=== PATIENT | female | born 1965 | race Caucasian/White ===

== ENCOUNTER 2016-03-19 13:54 | Emergency (ER) | payer OTHER ==
[~2016-03-19] VITALS: Ht 162.6 cm; Wt 95.5 kg
[2016-03-19 14:01] VITALS: Ht 162.6 cm; Wt 95.5 kg
[2016-03-19] MEDS ORDERED: DICLOFENAC SODIUM 37.5 MG/ML VIAL IV STA (15:01)
[2016-03-19 16:32] LABS: ADD UMIC YES; URINE BILIRUBIN (Dip) NEGATIVE (NEGATIVE); URINE BLOOD (Dip) 3+ (NEGATIVE); URINE COLOR DK. RED (YELLOW); URINE GLUCOSE (Dip) NEGATIVE (NEGATIVE); URINE KETONES (Dip) TRACE (NEGATIVE); URINE LEUKOCYTE ESTERASE (Dip) NEGATIVE (NEGATIVE); URINE NITRITE (Dip) NEGATIVE (NEGATIVE); URINE TOTAL PROTEIN (Dip) 2+ (NEGATIVE); URINE UROBILINOGEN (Dip) 1.0 E.U./dL (0.1-1.0)
[2016-03-19 16:35] LABS: BASOPHILS % 0.4 % (0.0-2.0); EOSINOPHILS # 0.2 10^3/ul (0.0-0.5); EOSINOPHILS % 1.5 % (0.0-7.0); HEMATOCRIT 25.2 % (37.0-47.0); HEMOGLOBIN 8.1 g/dl (12.0-16.0); LYMPHOCYTES # 2.3 10^3/ul (0.8-2.9); LYMPHOCYTES % 23.9 % (15.0-51.0); MEAN CORPUSCULAR HEMOGLOBIN 22.9 pg (29.0-33.0); MEAN CORPUSCULAR VOLUME 71.5 fl (82.0-101.0); MONOCYTE # 0.4 10^3/ul (0.3-0.9); MONOCYTES % 4.4 % (0.0-11.0); NEUTROPHIL # 6.8 10^3/ul (1.6-7.5); NEUTROPHILS % 69.8 % (39.0-77.0); PLATELET COUNT 292 10^3/UL (140-440); RED BLOOD COUNT 3.52 10^6/ul (4.20-5.40); RED CELL DISTRIBUTION WIDTH 21.4 % (11.5-14.5); UNCORRECTED WBC 9.8 10^3/ul (4.8-10.8); WHITE BLOOD COUNT 9.8 10^3/ul (4.8-10.8)
[2016-03-19 16:38] LABS: CONDITION 1; INR 1.05; LH ANALYZER COMMENTS 1; PARTIAL THROMBOPLASTIN TIME 25.9 Sec (25.0-35.0); PROTIME 13.7 Sec (12.2-14.2); PT RATIO 1.1
[2016-03-19 16:40] LABS: ALBUMIN 4.4 g/dl (3.3-4.9); POTASSIUM 3.7 mmol/L (3.5-5.1)
[2016-03-19 16:42] LABS: CREATININE 0.9 mg/dl (0.44-1.00)
[2016-03-19 16:43] LABS: ALBUMIN/GLOBULIN RATIO 1.18; BILIRUBIN,INDIRECT 0.3 mg/dl (0-1.1); BILIRUBIN,TOTAL 0.3 mg/dl (0.2-1.3); TOTAL PROTEIN 8.1 g/dl (6.1-8.1)
[2016-03-19 16:44] LABS: CALCIUM 8.9 mg/dl (8.4-10.2)
--- NOTE | 2016-03-19 17:16 | RADRPT ---
PROCEDURE: US Pelvis CLINICAL INDICATION: Vaginal bleeding TECHNIQUE: Sonographic evaluation of the pelvis was performed utilizing both transabdominal and tr ansvaginal technique. Curved array transabdominal transducer technique as well as a high frequency endovaginal probe was utilized. Images were reviewed on the high-resolution PACS workstation. COMPARISON: None available FINDINGS: The uterus is mildly enlarged and heterogeneous, measuring 10.6 x 7.4 x 7.4 cm in dimension. The ut erus is anteverted in normal position. Anterior fundal submucosal fibroid is identified measuring 4.0 cm. The endometrium measures 10.8 mm in diameter. The normal trilaminar stripe of the endometr ium is preserved. Cervical Nabothian cysts are incidentally noted. The right ovary is not visualized. The left ovary measures 4.5 x 2.8 x 3.9 cm in dimension, and dem onstrate simple cysts measuring up to 2.6 cm. No left ovarian torsion or solid adnexal mass is seen . Trace amount of pelvic free fluid is present. IMPRESSION: 1. Uterus demonstrates a 4.0 cm anterior fundal submucosal fibroid. 2. Left ovary demonstrate simple cysts measuring up to 2.6 cm. 3. Right ovary is not visualized. No right adnexal mass is seen. 4. Nonspecific trace amount of pelvic free fluid is present. RPTAT: PP .Yaay Stokes MD, MD Date Time Electronically viewed and signed by .Yaya Stokes MD, MD on 03/19/2016 17:15 .R/
[2016-03-19 17:20] LABS: URINE RBCS >50 /HPF (0)
[2016-03-19 17:21] LABS: BACTERIA,URINE FEW; SQUAMOUS EPITHELIAL CELL,UR FEW
[2016-03-19] MEDS ORDERED: MEDR10TA2 PO (17:49)
[2016-03-19] MEDS ORDERED: FER325 PO (17:49)
[2016-03-19] MEDS ORDERED: ACET500C5 PO (17:50)
--- NOTE | 2016-03-19 17:53 | ERD ---
ER Documentation Chief Complaint Date/Time DATE: 03/19/16 TIME: 17:51 Chief Complaint vaginal bledding x 2 months, pelvic pain since yesterday HPI This 42-year-old female presents with vaginal bleeding intermittently for last 2 months. She started having more pelvic pain over the last 2 days. She has a fevers, vomiting, shortness breath or chest pain. She denies any dysuria or flank pain. The pain is primarily in the suprapubic area and is crampy. ROS All systems reviewed and are negative except as per history of present illness. Medications Home Meds Active Scripts Acetaminophen* (Tylophen*) 500 Mg Capsule, 1 CAP PO Q6H Y for PAIN AND OR ELEVATED TEMP, #20 CAP Prov:GUNNER KELLEY MD 03/19/16 Medroxyprogesterone Acetate* (Provera*) 10 Mg Tablet, 10 MG PO DAILY for 7 Days , #7 TAB Prov:GUNNER KELLEY MD 03/19/16 Ferrous Sulfate* (Ferrous Sulfate*) 325 Mg Tabec, 325 MG PO TID, #100 TAB Prov:GUNNER KELLEY MD 03/19/16 Allergies Allergies: Coded Allergies: No Known Allergy (Unverified , 03/19/16) PMhx/Soc Medical and Surgical Hx: pt denies Medical Hx, pt denies Surgical Hx Physical Exam Vitals Vital Signs Date Time Temp Pulse Resp B/P Pulse Ox O2 Delivery O2 Flow Rate FiO2 03/19/16 14:01 97.3 77 20 117/55 100 Physical Exam Const: [] Head: Atraumatic Eyes: Normal Conjunctiva ENT: Normal External Ears, Nose and Mouth. Neck: Full range of motion..~ No meningismus. Resp: Clear to auscultation bilaterally Cardio: Regular rate and rhythm, no murmurs Abd: Soft, non tender, non distended. Normal bowel sounds Skin: No petechiae or rashes Back: No midline or flank tenderness Ext: No cyanosis, or edema Neur: Awake and alert Psych: Normal Mood and Affect Result Diagram: 03/19/16 1605 03/19/16 1605 Results 24 hrs Laboratory Tests Test 03/19/16 16:05 Activated Partial Thromboplast Time 25.9Sec Alanine Aminotransferase (ALT/SGPT) 18IU/L Albumin 4.4g/dl Albumin/Globulin Ratio 1.18 Alkaline Phosphatase 55IU/L Anion Gap 18 Aspartate Amino Transf (AST/SGOT) 18IU/L Basophils # 0.010^3/ul Basophils % 0.4% Blood Morphology Comment Blood Urea Nitrogen 18mg/dl Calcium Level 8.9mg/dl Carbon Dioxide Level 25mmol/L Chloride Level 105mmol/L Creatinine 0.90mg/dl Direct Bilirubin 0.00mg/dl Eosinophils # 0.210^3/ul Eosinophils % 1.5% Globulin 3.70g/dl Glucose Level 101mg/dl Hematocrit 25.2% Hemoglobin 8.1g/dl INR International Normalized Ratio 1.05 Indirect Bilirubin 0.3mg/dl Lipase 74U/L Lymphocytes # 2.310^3/ul Lymphocytes % 23.9% Mean Corpuscular Hemoglobin 22.9pg Mean Corpuscular Hemoglobin Concent 32.0g/dl Mean Corpuscular Volume 71.5fl Mean Platelet Volume 8.0fl Monocytes # 0.410^3/ul Monocytes % 4.4% Neutrophils # 6.810^3/ul Neutrophils % 69.8% Nucleated Red Blood Cells # 0.010^3/ul Nucleated Red Blood Cells % 0.0/100WBC Platelet Count 21764^3/UL Potassium Level 3.7mmol/L Prothrombin Time 13.7Sec Prothrombin Time Ratio 1.1 Red Blood Count 3.5210^6/ul Red Cell Distribution Width 21.4% Sodium Level 144mmol/L Total Bilirubin 0.3mg/dl Total Protein 8.1g/dl Urine Bacteria FEW Urine Bilirubin NEGATIVE Urine Clarity CLEAR Urine Color DK. RED Urine Glucose NEGATIVE% Urine Hemoglobin 3+ Urine Ketones TRACE Urine Leukocyte Esterase NEGATIVE Urine Microscopic RBC >50/HPF Urine Microscopic WBC 0-2/HPF Urine Nitrite NEGATIVE Urine Specific [place] 1.025 Urine Squamous Epithelial Cells FEW Urine Total Protein 2+ Urine Urobilinogen 1.0 E.U./dL Urine pH 6.0 White Blood Count 9.810^3/ul Current Medications Medications (Trade) Dose Ordered Sig/Dereje Route PRN Reason Start Time Stop Time Status Last Admin Dose Admin Diclofenac Sodium (Dyloject) 37.5 mg ONCE STAT IV 03/19/16 15:01 03/19/16 15:04 DC 03/19/16 16:15 Medroxyprogesterone Acetate (Provera) 10 mg ONCE ONCE PO 03/19/16 18:00 03/19/16 18:01 Ferrous Sulfate (Ferrous Sulfate (Ec)) 325 mg ONCE ONCE PO 03/19/16 18:00 03/19/16 18:01 Procedures/MDM CBC shows a hemoglobin of 8.1, otherwise no acute abnormalities. Urine shows no evidence of leukocytes, nitrites or glucose. Pelvic ultrasound shows a 4 cm anterior fundal submucosal fibroid, otherwise small ovarian cysts no additional acute findings. HCG is negative. PT and PTT are normal. Patient was given ferrous sulfate 325 mg by mouth and Provera 10 mg by mouth. Patient presents with menometrorrhagia with evidence of submucosal fibroids on pelvic ultrasound. Patient currently does not have any signs or symptoms to suggest symptomatic anemia. Patient was discharged home with a prescription for sulfate , short course of Provera and instructions to follow-up with her primary doctor and OB for further evaluation and management. She should otherwise return for fevers, chest pain, acute abdomen, shortness breath, new or worsening symptoms as directed after instructions. Departure Diagnosis: Primary Impression: Anemia Anemia type: unspecified type Qualified Code: D64.9 - Anemia, unspecified type Additional Impression: Fibroids Uterine leiomyoma location: submucous Qualified Code: D25.0 - Submucous leiomyoma of uterus Condition: Stable Patient Instructions: Anemia, Iron Deficiency (Adult), Uterine Fibroids Referrals: MANAGER PUBLISHING [place] [id number] [id number] OFFICE FAX NGOZI MOORE [address] [place], [place] [phone] [place] [place] [address] [place], [place] [phone] REINIER COLEMAN [address] [facility], [address] [place] [id number] HELENA [place]ATES [address] [place], [place] [phone] [facility] [address] [place], [place] [phone] [facility], [facility] [id number] - TAE SWE[address] [facility] [address] [address] SANTILLAN, MARY [address] [facility]. [address], [facility] [id number] ESCOBAR, F[place] [address] [place], [place] [phone] Additional Instructions: [facility]AFER DOCTOR/ OB / YACHT RIGGER PARA MAS EVALUACON Y TRATAMIENTO . TIENE FIBROIDS EN MATRIZ. Cheque otro vez con shafer doctor primario en el proximo berrios or regresa para mas o nueva simptomas. GUNNER KELLEY MD Mar 19, 2016 17:53
[2016-03-19] MEDS ORDERED: FERROUS SULFATE (EC) 325 MG TAB PO ONE (18:00)
[2016-03-19] MEDS ORDERED: MEDROXYPROGESTERONE 10 MG TAB PO ONE (18:00)
== END 2016-03-19 18:15 | disposition home or self-care (01) ==
LOC: FTE 13:54
DX: D64.9 Anemia, unspecified (principal); D25.0 Submucous leiomyoma of uterus; R10.2 Pelvic and perineal pain
CPT/HCPCS: 36415; 76830; 76856; 80053; 81001; 83690; 85025; 85610; 85730; 96374; Z7502; Z7610; 81003

== ENCOUNTER 2018-08-20 13:50 | Emergency (ER) | payer OTHER ==
[~2018-08-20] VITALS: Ht 160 cm; Wt 94.0 kg
[~2018-08-20 13:50] MED LIST: ACET500C5 PO; FER325 PO; MEDR10TA2 PO
[2018-08-20 13:52] VITALS: BP 138/84; PULSE 71; RESP 16; Ht 160 cm; Wt 94.0 kg
[2018-08-20] MEDS ORDERED: SOD CHLORIDE 0.9% 1,000 ML IV STA (14:50)
[2018-08-20] MEDS ORDERED: ONDANSETRON 4 MG INJ IV STA (14:50)
[2018-08-20] MEDS: morphine 4 MG/ML VIAL IV STA ×2 (15:04→15:13)
--- NOTE | 2018-08-20 15:56 | ERD ---
ER Documentation Chief Complaint Chief Complaint RT LOWER QUADRANT PAIN WITH NAUSEA SINCE LAST NIGHT , SENT BY PMD HPI Patient is a 53-year-old female, no past medical history, presents the ER for concerns of right lower quadrant abdominal pain which started last night. [facility] and referred here by her primary care physician to rule out appendicitis. Patient states pain is localized to the right lower quadrant. Patient denies any fevers, chills. Patient does report vomiting, 2 episodes, nonbloody, nonbilious. Patient denies any left lower quadrant pain, diarrhea, rectal bleeding. Patient has no urinary symptoms. No recent travel. ROS All systems reviewed and are negative except as per history of present illness. Medications Home Meds Active Scripts Nitrofurantoin Monohyd Macrocr* (Macrobid*) 100 Mg Capsr, 100 MG PO BID for 5 Da ys, CAP Prov:ZACH CISNEROS PA-C 08/20/18 Acetaminophen* (Tylophen*) 500 Mg Capsule, 1 CAP PO Q6H PRN for PAIN AND OR ELEVATED TEMP, #20 CAP Prov:ZACH CISNEROS PA-C 08/20/18 Acetaminophen* (Tylophen*) 500 Mg Capsule, 1 CAP PO Q6H PRN for PAIN AND OR ELEVATED TEMP, #20 CAP Prov:GUNNER KELLEY MD 03/19/16 Medroxyprogesterone Acetate* (Provera*) 10 Mg Tablet, 10 MG PO DAILY for 7 Days, #7 TAB Prov:GUNNER KELLEY MD 03/19/16 Ferrous Sulfate* (Ferrous Sulfate*) 325 Mg Tabec, 325 MG PO TID, #100 TAB Prov:GUNNER KELLEY MD 03/19/16 Allergies Allergies: Coded Allergies: No Known Allergy (Unverified , 03/19/16) PMhx/Soc Medical and Surgical Hx: pt denies Medical Hx, pt denies Surgical Hx Hx Alcohol Use: No Hx Substance Use: No Hx Tobacco Use: No FmHx Family History: No diabetes Physical Exam Vitals Vital Signs Date Temp Pulse Resp B/P (MAP) Pulse Ox O2 O2 Flow FiO2 Time Delivery Rate 08/20/18 98.1 71 16 138/84 100 13:52 (102) Physical Exam GENERAL: Well-developed, well-nourished female. Appears in no acute distress. HEAD: Normocephalic, atraumatic. EYES: Pupils are equally reactive bilaterally. EOMs grossly intact. No conjunctival erythema. NECK: Supple. No meningismus. Normal range of motion of the neck. LUNG: Clear to auscultation bilaterally. No rhonchi, wheezing, rales or coarse breath sounds. HEART: Regular rate and rhythm. No murmurs, rubs or gallops. ABDOMEN: Soft, nondistended. Tender to palpation in the right lower quadrant. Positive bowel sounds in all four quadrants. No rebound tenderness, no guarding. (-) McBurney's point tenderness. No CVA tenderness. EXTREMITIES: Equal pulses bilaterally. No peripheral clubbing, cyanosis or john a. No unilateral leg swelling. NEUROLOGIC: Alert and oriented. Moving all four extremities without any difficulty. Normal speech. Steady gait. SKIN: Normal color. Warm and dry. No rashes or lesions. Result Diagram: 08/20/18 1504 08/20/18 1504 Results 24 hrs Laboratory Tests Test 08/20/18 15:04 08/20/18 15:15 White Blood Count 5.9 10^3/ul Red Blood Count 4.74 10^6/ul Hemoglobin 13.9 g/dl Hematocrit 42.5 % Mean Corpuscular Volume 89.7 fl Mean Corpuscular Hemoglobin 29.3 pg Mean Corpuscular Hemoglobin Concent 32.7 g/dl Red Cell Distribution Width 13.9 % Platelet Count 187 10^3/UL Mean Platelet Volume 10.0 fl Immature Granulocytes % 0.200 % Neutrophils % 49.3 % Lymphocytes % 31.9 % Monocytes % 9.3 % Eosinophils % 8.3 % Basophils % 1.0 % Nucleated Red Blood Cells % 0.0 /100WBC Immature Granulocytes # 0.010 10^3/ul Neutrophils # 2.9 10^3/ul Lymphocytes # 1.9 10^3/ul Monocytes # 0.6 10^3/ul Eosinophils # 0.5 10^3/ul Basophils # 0.1 10^3/ul Nucleated Red Blood Cells # 0.0 10^3/ul Sodium Level 145 mmol/L Potassium Level 4.1 mmol/L Chloride Level 106 mmol/L Carbon Dioxide Level 26 mmol/L Anion Gap 13 Blood Urea Nitrogen 26 mg/dl Creatinine 1.19 mg/dl Est Glomerular Filtrat Rate mL/min 48 mL/min Glucose Level 104 mg/dl Calcium Level 9.8 mg/dl Total Bilirubin 0.9 mg/dl Direct Bilirubin 0.00 mg/dl Indirect Bilirubin 0.9 mg/dl Aspartate Amino Transf (AST/SGOT) 24 IU/L Alanine Aminotransferase (ALT/SGPT) 25 IU/L Alkaline Phosphatase 83 IU/L Total Protein 8.7 g/dl Albumin 4.7 g/dl Globulin 4.00 g/dl Albumin/Globulin Ratio 1.17 Lipase 226 U/L Urine Color YELLOW Urine Clarity SLIGHTLY CLOUDY Urine pH 5.0 Urine Specific [place] 1.018 Urine Ketones NEGATIVE mg/dL Urine Nitrite NEGATIVE mg/dL Urine Bilirubin NEGATIVE mg/dL Urine Urobilinogen NEGATIVE mg/dL Urine Leukocyte Esterase 1+ Samantha/ul Urine Microscopic RBC 1 /HPF Urine Microscopic WBC 8 /HPF Urine Squamous Epithelial Cells MODERATE /HPF Urine Bacteria FEW /HPF Urine Hemoglobin NEGATIVE mg/dL Urine Glucose NEGATIVE mg/dL Urine Total Protein NEGATIVE mg/dl Current Medications Medications Dose Sig/Dereje Start Time Status Last (Trade) Ordered Route PRN Stop Time Admin Dose Reason Admin Sodium 1,000 ml @ Q1H STAT 08/20/18 DC 08/20/18 Chloride 1,000 mls/hr IV 14:50 15:03 08/20/18 15:49 Morphine 4 mg ONCE STAT 08/20/18 DC Sulfate IV 14:50 (morphine) 08/20/18 14:51 Ondansetron 4 mg ONCE STAT 08/20/18 DC 08/20/18 HCl (Zofran IV 14:50 15:04 Inj) 08/20/18 14:51 Procedures/MDM ED COURSE: The patient was stable throughout ED course. I kept the patient and/or family informed of laboratory and diagnostic imaging results throughout the ED course. DIAGNOSTIC IMAGING: Read by radiologist. Patient: DRAKE DAVIS : 1965 Age: 53 Sex: F MR #: [id number] DOS: 08/20/18 1450 Ordering MD: ZACH CISNEROS PA-C Location: [facility] Room/Bed: PROCEDURE: CT abdomen and pelvis without contrast. CLINICAL INDICATION: Right lower quadrant pain TECHNIQUE: Continues 2.5 mm axial images were obtained from the domes of the diaphragms to the inferior pubic rami. No oral or intravenous contrast was administered. The calculated dose length product (DLP) = 1241.84 mGy-cm. Exam CTDlvol = 21.16 mGy. One or more of the following dose reduction techniques were used: Automated exposure control, adjustment of the mA and or KV according to patient size, or use of iterative reconstruction technique. One or more of the following dose reduction techniques were used: Automated exposure control, adjustment of the mA and or KV according to patient size, or use of iterative reconstruction technique. DICOM images are available. COMPARISON: None. FINDINGS: Lung bases are clear. No pleural pericardial fluid is seen. Small hiatal hernia is seen. There is fatty change of the liver. Otherwise, liver, gallbladder, pancreas, spleen, adrenals, and kidneys are within normal limits on this noncontrast study. There is no renal calculi or obstructive uropathy. Aorta is normal in caliber. No pathologically enlarged mesenteric lymph nodes are seen. There is thickening of the gastric body which may suggest gastritis, peptic ulcer disease. No small bowel dilatation or obstruction is seen. There is no free fluid, free air, abscess in the upper abdomen CT pelvis: Images through the pelvis demonstrate no free fluid, free air, abscess. Bladder is partially distended grossly unremarkable. Uterus and adnexa within normal limits. Evaluation of the colon demonstrates no diverticulosis, diverticulitis or acute colitis. The appendix is not visualized as a separate structure. There are no secondary signs of appendicitis. No pathologically enlarged iliac chain lymph nodes are seen. No destructive bony lesions are seen IMPRESSION: 1. No acute inflammatory process, mass, or adenopathy on this noncontrast study. 2. Appendix is not visualized. There are no secondary signs of appendicitis. 3. Mild thickening of the gastric wall may suggest gastritis/peptic ulcer disease. 4. Fatty change of the liver. 5. Small hiatal hernia RPTAT: HH .Carroll Hodges MD, MD Date Time Electronically viewed and signed by .Carroll Hodges MD, MD on 08/20/2018 16:15 .W/ CC: ZACH CISNEROS PA-C [id number] Patient: DRAKE DAVIS : 1965 Age: 53 Sex: F MR #: [id number] DOS: 08/20/18 0000 Ordering MD: ZACH CISNEROS PA-C Location: [facility] Room/Bed: PROCEDURE: US Pelvis Non-OB with endovaginal scanning and Doppler CLINICAL INDICATION: Right pelvic pain TECHNIQUE: Images were taken during real time trans pelvic and endovaginal interrogation. Color-flow and Doppler interrogation of the ovaries was performed. COMPARISON: 03/19/2016 FINDINGS: Uterus: The uterus is anteverted, somewhat heterogeneous and mildly prominent in size measuring 9.7 cm in sagittal diameter and 5.7 x 4.8 cm in cross diameter. The endometrial stripe measures 3.4 mm. There is an intramural / submucosal fibroid within the central uterine fundus measuring 2.8 x 2.8 x 2.3 cm. Ovaries: The right ovary measures 1.9 x 1.5 x 0.8 cm and appears unremarkable. Vascular flow is demonstrated in the right ovary. The left ovary is not identified. Adnexa: No adnexal mass is identified. Free intraperitoneal fluid: None visualized. IMPRESSION: 1. The uterus remains anteverted heterogeneous and slightly less prominent in size with the endometrial stripe no longer thickened measuring 3.4 mm. An intramural / submucosal fibroid is seen within the central uterine fundus measuring 2.8 x 2.8 x 2.3 cm, having decreased in size since the previous study. The Nabothian cyst seen previously are not presently demonstrated. 2. The right ovary is now evident and appears normal with vascular flow demo nstrated. On the present study the left ovary is not identified. 3. There is no longer free intraperitoneal fluid and no adnexal mass is evident. Physician Miriam Date Time Electronically viewed and signed by Physician Miriam on 08/20/2018 15:57 RH/ CC: ZACH CISNEROS PA-C [phone] PROCEDURES: None. MEDICATIONS GIVEN: IV fluids, Zofran, morphine Patient tolerated medication well with no adverse reactions. Patient reported improvement in pain. MEDICAL DECISION MAKIN-year-old female with no past medical history presents to the ER for concerns of right lower quadrant abdominal pain x1 day. Vital signs were reviewed. Patient is afebrile. Patient was not hypoxic. IV line was established. Blood work is obtained. CBC showed no evidence of systemic infection or severe anemia. CMP showed no evidence of electrolyte abnormalities, severe acidosis, alkalosis, or liver disease. Patient's creatinine was noted to be 1.19, BUN of 26. Lipase showed no evidence of acute pancreatitis. UA showed 1+ leukocyte and WBC. Patient will be treated course of antibiotics for concerns of UTI. Urine test was negative. Pelvic ultrasound did show a fibroid. See formal report above. CT abdomen pelvis showed no acute inflammatory process, mass, adenopathy. No signs of appendicitis. Upon reexamination, patient reported improvement in pain. Patient was advised to follow-up with her primary care physician for further management of her elevated creatinine level. Patient will need repeat CMP in the next week. Patient may need to follow-up with a rubber goods tester water. Case was discussed with supervising physician Dr. Gaxiola. Reviewed patient's blood work findings with her. She agreed that Macrobid was appropriate for patient's UTI treatment at this time. At this time, patient presentation is most consistent with right lower quadrant pain, fibroid, UTI. Differential diagnoses included but was not limited to acute coronary syndrome, AAA, mesenteric ischemia, lower lobe pneumonia, DKA, bowel perforation, cholecystitis, choledocholithiasis, ascending cholangitis, hepatic abscess, pancreatitis, PUD, gastritis, GERD, splenic rupture, diverticulitis, p yelonephritis, nephrolithiasis, appendicitis, constipation, , ectopic , PID, ovarian torsion or tubo-ovarian abscess. PRESCRIPTIONS: Macrobid, Tylenol DISCHARGE: At this time, patient is stable for discharge and outpatient management. I have instructed the patient to follow-up with his/her primary care physician in 1-2 days. I have instructed the patient to promptly return to the ER at any time for any new or worsening symptoms including increased pain, nausea, vomiting, di arrhea, fever, weakness or LOC. The patient and/or family expressed understanding of and agreement with this plan. All questions were answered. Home care instructions were provided. Disclaimer: Inadvertent spelling and grammatical errors are likely due to EHR/dictation software use and do not reflect on the overall quality of patient care. Also, please note that the electronic time recorded on this note does not necessarily reflect the actual time of the patient encounter. Departure Diagnosis: Primary Impression: Fibroids Additional Impressions: UTI (urinary tract infection) Urinary tract infection type: site unspecified Hematuria presence: without hematuria Qualified Codes: N39.0 - Urinary tract infection, site not specified RLQ abdominal pain Condition: Fair Patient Instructions: Understanding Urinary Tract Infections (UTIs), What Are Fibroids? Referrals: PENDING SALE TO [facility] YOU HAVE RECEIVED A MEDICAL SCREENING EXAM AND THE RESULTS INDICATE THAT YOU DO NOT HAVE A CONDITION THAT REQUIRES URGENT TREATMENT IN THE EMERGENCY DEPARTMENT. FURTHER EVALUATION AND TREATMENT OF YOUR CONDITION CAN WAIT UNTIL YOU ARE SEEN IN YOUR DOCTORS OFFICE WITHIN THE NEXT 1-2 DAYS. IT IS YOUR RESPONSIBILITY TO MAKE AN APPOINTMENT FOR FOLOW-UP CARE. IF YOU HAVE A PRIMARY DOCTOR --you should call your primary doctor and schedule an appointment IF YOU DO NOT HAVE A PRIMARY DOCTOR YOU CAN CALL OUR PHYSICIAN REFERRAL HOTLINE AT IF YOU CAN NOT AFFORD TO SEE A PHYSICIAN YOU CAN CHOSE FROM THE FOLLOWING [facility] [address] [facility]. [facility] [address] [facility]. [facility] [address] [facility]. [facility] [address] [facility]. [facility] [address] [facility]. [facility]. [address] [facility]. [facility] YOU HAVE RECEIVED A MEDICAL SCREENING EXAM AND THE RESULTS INDICATE THAT YOU DO NOT HAVE A CONDITION THAT REQUIRES URGENT TREATMENT IN THE EMERGENCY DEPARTMENT. FURTHER EVALUATION AND TREATMENT OF YOUR CONDITION CAN WAIT UNTIL YOU ARE SEEN IN YOUR DOCTORS OFFICE WITHIN THE NEXT 1-2 DAYS. IT IS YOUR RESPONSIBILITY TO MAKE AN APPOINTMENT FOR FOLOW-UP CARE. IF YOU HAVE A PRIMARY DOCTOR --you should call your primary doctor and schedule and appointment IF YOU DO NOT HAVE A PRIMARY DOCTOR YOU CAN CALL OUR PHYSICIAN REFERRAL HOTLINE AT . IF YOU CAN NOT AFFORD TO SEE A PHYSICIAN YOU CAN CHOSE FROM THE FOLLOWING [facility]: [facility] [address] [place] [address] [facility] [address] [place] [address] [facility] [address] [place] [address] Additional Instructions: Drink plenty of fluids. Stay hydrated. Follow-up with Dr. Mcfarland for repeat creatinine level. Monitor creatinine level closely. Call your primary care doctor TOMORROW for an appointment during the next 1-2 days.See the doctor sooner or return here if your condition worsens before your appointment time. ZACH CISNEROS PA-C Aug 20, 2018 15:56
[2018-08-20] MEDS ORDERED: ACET500C5 PO (16:32)
[2018-08-20] MEDS ORDERED: NITR-58 PO (16:34)
== END 2018-08-20 16:54 | disposition home or self-care (01) ==
LOC: FTE 13:50
DX: D25.9 Leiomyoma of uterus, unspecified (principal); N39.0 Urinary tract infection, site not specified
CPT/HCPCS: 36415; 74176; 76830; 76856; 80053; 81001; 83690; 85025; 96374; 96375; J2405; J7030; Z7502; J2270